=== PATIENT | female | born 1990 | race Two or more races ===

== ENCOUNTER 2019-04-20 15:57 | Emergency (ER) | payer BC ==
[~2019-04-20] VITALS: Ht 172.7 cm; Wt 95.0 kg
[2019-04-20] MEDS ORDERED: NITROGLYCERIN 0.4MG TABLET SL SL PRN (19:45)
[2019-04-20] MEDS ORDERED: ASPIRIN 81MG TABLET PO ONE (19:45)
[2019-04-20 20:21] LABS: HCG SCREEN NEGATIVE
[2019-04-20 20:22] LABS: CHLORIDE 108 mEq/L (98-107)
[2019-04-20 20:25] LABS: BASOPHILS % 0.5 % (0.0-2.0); D-DIMER 0.21 mg/L FEU (<0.50); EOSINOPHILS % 0.5 % (0.0-5.0); HEMATOCRIT. 38.7 % (36.0-48.0); HEMOGLOBIN. 13.3 g/dL (12.0-16.0); INR 1.1; LYMPHOCYTES % 28.8 % (20.0-50.0); MEAN CORPUSCULAR HEMOGLOBIN 29.8 pg (28.0-32.0); MEAN CORPUSCULAR VOLUME 86.6 fL (81.0-99.0); MEAN PLATELET VOLUME 9.7 fl (7.4-10.4); MONOCYTES % 5.9 % (2.0-8.0); NEUTROPHILS % 64.3 % (40.0-76.0); PARTIAL THROMBOPLASTIN TIME 28.5 sec (23.4-31.0); PLATELET 194 x1000/uL (130-400); RED BLOOD CELL COUNT 4.46 mill/uL (4.2-5.4)
[2019-04-21 00:42] VITALS: BP 118/74
== END 2019-04-21 00:44 | disposition home or self-care (01) ==
LOC: ER 15:57
DX: R07.2 Precordial pain (principal)
CPT/HCPCS: 36415; 71045; 80053; 83880; 84484; 84703; 85025; 85379; 85610; 85730; 93005; 99284; Z7610